=== PATIENT | female | born 1995 | race Caucasian/White ===

== ENCOUNTER 2016-11-29 22:45 | Emergency (ER) | payer OTHER ==
[~2016-11-29] VITALS: Ht 165.1 cm; Wt 66.5 kg
[2016-11-29 22:55] VITALS: Ht 165.1 cm; Wt 66.5 kg
[2016-11-30] MEDS ORDERED: PRENAT PO (02:10)
--- NOTE | 2016-11-30 02:11 | ERD ---
ER Documentation Chief Complaint Date/Time DATE: 11/30/16 TIME: 02:06 Chief Complaint demies on Tuesday ahs not passed POC HPI 21-year-old female presents here in emergency department for complaints of unable to pass this tissue, patient was told 3 days ago that her baby does not have any heartbeat, patient is been present for 12 weeks, patient denies any vaginal bleeding or vaginal discharge at this time. Patient hasn't abdominal pain or flank pain. Patient was supposed to go to [facility] for possible removal of the tissue, a procedure was supposed to be done, patient was not able to go. Patient denies any fever or chills. ROS All systems reviewed and are negative except as per history of present illness. Medications Home Meds Reported Medications Multivit/Min/Fol Ac/Iron/Pren* ( S*) Unknown Strength Tab, PO DAILY, TAB 11/30/16 Allergies Allergies: Coded Allergies: No Known Allergy (Unverified , 11/30/16) PMhx/Soc Medical and Surgical Hx: pt denies Surgical Hx Hx Miscellaneous Medical Probl: Yes (miscarriage) Hx Alcohol Use: No Hx Substance Use: No Hx Tobacco Use: No Smoking Status: Never smoker FmHx Family History: No coronary disease, No diabetes, No other Physical Exam Vitals Vital Signs Date Time Temp Pulse Resp B/P Pulse Ox O2 Delivery O2 Flow Rate FiO2 11/29/16 22:55 98.3 100 20 137/81 97 Physical Exam GENERAL: The patient is well developed and appropriate for usual state of health, in no apparent distress. CHEST: Clear to auscultation bilaterally. There are no rales, wheezes or rhonchi. HEART: Regular rate and rhythm. No murmurs, clicks, rubs or gallops. No S3 or S4. ABDOMEN: Soft, nontender and nondistended. Good bowel sounds. No rebound or guarding. No gross peritonitis. No gross organomegaly or masses. No Galindo sign or McBurney point tenderness. BACK: No midline or flank tenderness. EXTREMITIES: Equal pulses bilaterally. There is no peripheral clubbing, cyanosis or edema. No focal swelling or erythema. Full range of motion. Grossly neurovascularly intact. NEURO: Alert and oriented. Cranial nerves 2-12 intact. Motor strength in all 4 extremities with 5/5 strength. Sensation grossly intact. Normal speech and gait. SKIN: There is no apparent rash or petechia. The skin is warm and dry. HEMATOLOGIC AND LYMPHATIC: There is no evidence of excessive bruising or lymphedema. No gross cervical, axillary, or inguinal lymphadenopathy. Result Diagram: 11/30/16 0200 Results 24 hrs Laboratory Tests Test 11/30/16 02:00 11/30/16 03:59 White Blood Count 9.810^3/ul Red Blood Count 3.5210^6/ul Hemoglobin 10.8g/dl Hematocrit 31.2% Mean Corpuscular Volume 88.6fl Mean Corpuscular Hemoglobin 30.7pg Mean Corpuscular Hemoglobin Concent 34.6g/dl Red Cell Distribution Width 13.2% Platelet Count 68621^3/UL Mean Platelet Volume 10.4fl Neutrophils % 69.2% Lymphocytes % 22.9% Monocytes % 6.6% Eosinophils % 0.7% Basophils % 0.3% Nucleated Red Blood Cells % 0.0/100WBC Neutrophils # 6.810^3/ul Lymphocytes # 2.210^3/ul Monocytes # 0.710^3/ul Eosinophils # 0.110^3/ul Basophils # 0.010^3/ul Nucleated Red Blood Cells # 0.010^3/ul Beta HCG, Quantitative 45044.0mIU/ml Bedside Urine pH (LAB) 6.5 Bedside Urine Protein (LAB) Negative Bedside Urine Glucose (UA) Negative Bedside Urine Ketones (LAB) Negative Bedside Urine Blood Negative Bedside Urine Nitrite (LAB) Negative Bedside Urine Leukocyte Esterase (L Negative Procedures/MDM Medical Decision Making: Patients symptoms is most likely consistent of demise, incomplete . Patient does not show any evidence of hypovolemic shock. Patients hemoglobin and hematocrit is stable. There is low suspicion for ectopic . ANTONELLA results show 10 week without any cardiac activity consistent with early failed . BetaHCG Quantitative is elevated patient just recently had the miscarriage. Per discussion with OB Laborist, Dr Worley, she can follow-up with [facility] for possible removal of the or can wait 1 week for spontaneous passing of the tissue. At this time, patient is not actively bleeding. The patient is Rh+, does not need RhoGAM this time. There is no signs of symptoms of dehydration. There is low suspicion for sepsis. Patient appears well and is hemodynamically stable. Disposition: Home. Condition: Stable Instructions: Patient is advised to do bed rest, avoid heavy lifting, and avoid having sex until cleared by OB doctor. Patient is advised to follow up with OB doctor in 48 hours for reevaluation of symptoms, see [facility] for possible dilatation and curettage. Patient is advised that is symptoms are worst , severe bleeding, dizziness, severe abdominal pain, fever, worst signs and symptoms to return to the emergency department immediately. Departure Diagnosis: Primary Impression: Incomplete Condition: Stable Patient Instructions: Miscarriage (Incomplete) Additional Instructions: Patient is advised to do bed rest, avoid heavy lifting, and avoid having sex until cleared by OB doctor. Patient is advised to follow up with OB doctor in 48 hours for reevaluation of symptoms, see [facility] for possible dilatation and curettage. Patient is advised that is symptoms are worst, severe bleeding, dizziness, severe abdominal pain, fever, worst signs and symptoms to return to the emergency department immediately. YESSICA MAC NP Nov 30, 2016 02:11
[2016-11-30 02:17] LABS: ADD SCAN DIFF NO
[2016-11-30 02:21] LABS: BASOPHILS % 0.3 % (0.0-2.0); EOSINOPHILS # 0.1 10^3/ul (0.0-0.5); EOSINOPHILS % 0.7 % (0.0-7.0); HEMATOCRIT 31.2 % (37.0-47.0); HEMOGLOBIN 10.8 g/dl (12.0-16.0); LYMPHOCYTES # 2.2 10^3/ul (0.8-2.9); LYMPHOCYTES % 22.9 % (15.0-51.0); MEAN CORPUSCULAR HEMOGLOBIN 30.7 pg (29.0-33.0); MEAN CORPUSCULAR HGB CONC 34.6 g/dl (32.0-37.0); MEAN CORPUSCULAR VOLUME 88.6 fl (82.0-101.0); MEAN PLATELET VOLUME 10.4 fl (7.4-10.4); MONOCYTE # 0.7 10^3/ul (0.3-0.9); MONOCYTES % 6.6 % (0.0-11.0); NEUTROPHIL # 6.8 10^3/ul (1.6-7.5); NEUTROPHILS % 69.2 % (39.0-77.0); PLATELET COUNT 325 10^3/UL (140-415); RED BLOOD COUNT 3.52 10^6/ul (4.20-5.40); RED CELL DISTRIBUTION WIDTH 13.2 % (11.5-14.5); WHITE BLOOD COUNT 9.8 10^3/ul (4.8-10.8)
--- NOTE | 2016-11-30 02:26 | RADRPT ---
PROCEDURE: US OB. CLINICAL INDICATION: No heart tones. TECHNIQUE: Multiple sonographic images of the pelvis were obtained. Transabdominal views of the p antoni are available for review. The images were reviewed on a PACS workstation. COMPARISON: No prior studies are available for comparison. FINDINGS: There is a single intrauterine . The mean gestational sac diameter measures 4.35 cm, corres ponding to a 35-dujv-6-day . The crown-rump length equals 3.36 cm which corresponds to a 1 6-wqck-9-day gestational age by ultrasound criteria. cardiac activity could not be identified . A 1.2 cm subchorionic hemorrhage is identified. The ovaries are not visualized. The adnexa are unremarkable. There is no free pelvic fluid. IMPRESSION: 1. Single intrauterine gestation of approximately 10 weeks 1 day. cardiac activity is not id entified, consistent with early failure. 2. Small subchorionic hematoma. RPTAT: HTAR .Silvestre Banerjee MD, MD Date Time Electronically viewed and signed by .Silvestre Banerjee MD, on 11/30/2016 02:25 .R/
[2016-11-30 03:56] LABS: URINE BLOOD (Dip) POC Negative (NEGATIVE)
[2016-11-30 04:48] VITALS: BP 120/77; PULSE 70; RESP 20; TEMP 98.3
== END 2016-11-30 04:50 | disposition home or self-care (01) ==
LOC: FTE 22:45
DX: O03.4 Incomplete spontaneous abortion without complication (principal)
CPT/HCPCS: 36415; 76801; 76817; 81003; 84702; 85025; 86900; 86901; Z7502

== ENCOUNTER 2018-03-28 12:20 | Inpatient (IN) | END 2018-04-01 15:56 | disposition home or self-care (01) | DRG 807 ==